=== PATIENT | male | born 1940 | race Caucasian/White ===

== ENCOUNTER 2018-12-31 19:41 | Inpatient (IN) | payer OTHER ==
[~2018-12-31] VITALS: Ht 167.6 cm; Wt 100.2 kg
--- NOTE | 2018-12-31 19:41 | NUR ---
PT CLARISA ALS. TAKEN TO BED 11
[2018-12-31 19:46] VITALS: BP 146/88
--- NOTE | 2018-12-31 20:24 | NUR ---
Dr. Castelan evaluating patient at bedside.
--- NOTE | 2018-12-31 20:40 | NUR ---
RT AND LAB AT BEDSIDE.
[2018-12-31 20:58] LABS: HEMATOCRIT 39.3 % (36-52); HEMOGLOBIN 12.9 g/dL (12.0-18.0); MEAN CORPUSCULAR HEMOGLOBIN 29 pg (27-31); MEAN CORPUSCULAR HGB CONC 33 g/dL (33-37); MEAN CORPUSCULAR VOLUME 88.1 fL (80-94); PLATELET COUNT (AUTO) 184 K/uL (140-450); RED BLOOD CELL COUNT(AUTO) 4.46 MIL/uL (4.20-6.10); RED CELL DISTRIBUTION WIDTH 14.7 % (11.6-13.7); WHITE BLOOD COUNT (AUTO) 14.5 K/uL (4.8-10.8)
[2018-12-31 21:09] LABS: APPEARANCE,URINE CLEAR (CLEAR); BILIRUBIN,URINE NEGATIVE (NEGATIVE); BLOOD, URINE NEGATIVE (NEGATIVE); COLOR,URINE YELLOW (YELLOW); LEUKOCYTE ESTERASE ,URINE NEGATIVE (NEGATIVE); NITRITE, URINE NEGATIVE (NEGATIVE); PH,URINE 6.5 (5.0-9.0); UGLUCOSE 3+ (NEGATIVE)
[2018-12-31 21:21] LABS: ALBUMIN 3.4 g/dL (3.4-5.0); ASPARTATE AMINOTRANSFERASE 18 U/L (15-37); CARBON DIOXIDE 28.9 mmol/L (21-32); CHLORIDE 95 mmol/L (98-107); CREATININE 1.6 mg/dL (0.7-1.3); POTASSIUM 3.9 mmol/L (3.5-5.1); SODIUM SERUM 131 mmol/L (136-145); TOTAL BILIRUBIN 0.9 mg/dL (0.0-1.0); UREA NITROGEN, BLOOD 33 mg/dL (7-18)
[2018-12-31 21:27] LABS: EOSINOPHILS % (MANUAL) 1 % (0-4); LYMPHOCYTES % (MANUAL) 25 % (20-46); MONOCYTES % (MANUAL) 6 % (5-12)
[2018-12-31 21:33] LABS: GLUCOSE 517 mg/dL (74-106)
[2018-12-31] MEDS ORDERED: NACL 0.9% 2,500 ML IV ONE (21:40)
--- NOTE | 2018-12-31 21:45 | NUR ---
FLU SWAB WAS DONE, SENT TO LAB
[2018-12-31] MEDS ORDERED: INSULIN REGULAR, HUMAN 100 UNIT/ML VIAL IVP ONE (22:05)
[2018-12-31] MEDS ORDERED: AZITHROMYCIN 500 MG in DEXTROSE 5% 250 ML IV ONE (22:35)
[2018-12-31] MEDS ORDERED: cefTRIAXone 1,000 MG VIAL ONE (22:52)
--- NOTE | 2018-12-31 23:29 | NUR ---
Blood sugar checked, result 302. notified.
[2018-12-31] MEDS ORDERED: AZITHROMYCIN 500 MG INJ VIAL IV ONE (23:32)
[2019-01-01] MEDS ORDERED: AMLO5TAB PO (00:27)
[2019-01-01] MEDS ORDERED: FINA5TAB1 PO (00:27)
[2019-01-01] MEDS ORDERED: CARV25TA2 PO (00:27)
[2019-01-01] MEDS ORDERED: AMAN100S37 PO (00:27)
[2019-01-01] MEDS ORDERED: QUET25TA PO (00:27)
[2019-01-01] MEDS ORDERED: HYDR-3293 PO (00:27)
[2019-01-01] MEDS ORDERED: TAMS0.4C96 PO (00:27)
[2019-01-01] MEDS ORDERED: HYDR-5122 PO (00:27)
[2019-01-01] MEDS ORDERED: DULO30EC PO (00:27)
[2019-01-01] MEDS ORDERED: RASA1TAB3 PO (00:27)
[2019-01-01] MEDS ORDERED: OMEP20TC PO (00:27)
[2019-01-01] MEDS ORDERED: ALBU117P IH (00:27)
[2019-01-01] MEDS ORDERED: FLUT1DSK2 IH (00:27)
[2019-01-01] MEDS ORDERED: FLONAS NS (00:27)
[2019-01-01] MEDS ORDERED: ATOR40TA PO (00:27)
[2019-01-01] MEDS ORDERED: NITR0.4T2 SL (00:27)
[2019-01-01] MEDS ORDERED: FISH10005 PO (00:27)
--- NOTE | 2019-01-01 00:40 | NUR ---
Pt report given to TARA Tillman. Transfer of care at this time.
--- NOTE | 2019-01-01 00:40 | NUR ---
Patient will be admitted to care of MD Arlette. Admited to [facility]. Will go to room 111A. Belongings list completed. Report to TARA Tillman.
--- NOTE | 2019-01-01 00:45 | NUR ---
ADMITTED THIS 78 YEAR OLD MALE FROM ER PER MARY BETH WITH CC OF SOB X 2WEEKS, AMBULATED TO BED WITH STEADY GAIT, ASSESSMENT DONE, AAOX4, VITAL SIGNS TAKEN, BP SLIGHTLY ELEVATED, DENIES CHEST PAIN, NO SOB NOTED, SAT-95% ON OXYGEN 2L VIA NASAL CANNULA, WITH DRY COUGH, ORIENTED TO ROOM AND CALL LIGHT, SLIGHT [place] TRIBE ON BOTH EARS, PLAN OF CARE DISCUSS, SAFETY MEASURES IN PLACE, CALL LIGHT WITHIN REACH.
[2019-01-01 01:00] VITALS: BP 159/89
[2019-01-01] MEDS ORDERED: ONDANSETRON 4 MG/2 ML VIAL IVP PRN (01:40)
[2019-01-01] MEDS ORDERED: ACETAMINOPHEN 325 MG TAB PO PRN (01:40)
[2019-01-01] MEDS ORDERED: DEXTROSE 50% 50 ML SYR IVP PRN (01:40)
--- NOTE | 2019-01-01 01:40 | NUR ---
PT PROVIDED WITH ICE WATER, TOLERATED, IVF INFUSING WELL, SIDE RAILS UP AND BED ALARM ON, ENCOURAGE TO USE CALL LIGHT FOR ASSISTANCE, MONITORED CLOSELY.
[2019-01-01] MEDS ORDERED: ALBUTEROL SULFATE/IPRATROPIU 3 ML SOL IH PRN (02:35)
--- NOTE | 2019-01-01 03:20 | NUR ---
PT AMBULATED TO BR WITH STANDBY ASSIST, VOIDED FREELY, PT BACK TO BED, NO SOB NOTED, MONITORED CLOSELY.
[2019-01-01 04:00] VITALS: BP 118/61
[2019-01-01] MEDS: INSULIN LISPRO SLIDING SCALE 100 UNITS/ML VIAL SUBQ PRN ×2 (05:54→11:46)
--- NOTE | 2019-01-01 06:07 | NUR ---
BLOOD SUGAR CHECKED WITH 271 RESULT, COVERAGE GIVEN, PT WATCHING TV, NO RESP DISTRESS NOTED, IVF INFUSING WELL, MONITORED CLOSELY.
[2019-01-01] MEDS: BLOOD GLUCOSE MONITORING 1 DEV DEV FS SCH ×2 (06:33→11:43)
--- NOTE | 2019-01-01 07:22 | NUR ---
BEDSIDE REPORT RECEIVED FROM NIGHT NURSE. PT AWAKE A/O ABLE TO COMMUNICATE NEEDS, DENIES PAIN OR SOB. NO S/S OF ACUTE DISTRESS NOTED AT THIS TIME, CALL LIGHT AND PERSONAL ITEMS WITHIN REACH, FALL PRECAUTIONS AND SAFETY MEASURES IN PLACE. WILL CONTINUE TO MONITOR.
--- NOTE | 2019-01-01 07:22 | NUR ---
PT AWAKE, NO SIGNS OF DISTRESS, BEDSIDE REPORT GIVEN TO TARA MEADOWS FOR CONTINUITY OF CARE.
[2019-01-01] MEDS ORDERED: BUDESONIDE 0.5 MG/2 ML NEBU INH SCH (07:30)
[2019-01-01 08:00] VITALS: BP 154/80
--- NOTE | 2019-01-01 08:35 | NUR ---
PATIENT HAS BEEN SCREENED AND CATEGORIZED HIGH NUTRITION RISK. PATIENT WILL BE SEEN WITHIN 1-2 DAYS OF ADMISSION. 01/01/19-01/02/[address]
--- NOTE | 2019-01-01 10:30 | NUR ---
PT REMAINS AWAKE A/O ABLE TO COMMUNICATE NEEDS, DENIES PAIN OR SOB AT THIS TIME. NO S/S OF ACUTE DISTRESS NOTED, CALL LIGHT AND PERSONAL ITEMS WITHIN REACH, FALL PRECAUTIONS AND SAFETY MEASURES IN PLACE. WILL CONTINUE TO MONITOR.
[2019-01-01] MEDS ORDERED: LEVO750T2 PO (10:53)
[2019-01-01 11:43] LABS: ANION GAP 7.8 (8-16); CHLORIDE 101 mmol/L (98-107); CREATININE 1.1 mg/dL (0.7-1.3); GLUCOSE 300 mg/dL (74-106); POTASSIUM 3.8 mmol/L (3.5-5.1); SODIUM SERUM 137 mmol/L (136-145); UREA NITROGEN, BLOOD 26 mg/dL (7-18)
[2019-01-01 12:00] VITALS: BP 133/72
[2019-01-01 12:10] LABS: BASOPHILS % (AUTO) 0.2 % (0.0-2.0); EOSINOPHILS # (AUTO) 0.2 K/uL (0-0.4); EOSINOPHILS % (AUTO) 1.7 % (0.0-4.0); LYMPHOCYTES # (AUTO) 4.7 K/uL (2.0-11.5); LYMPHOCYTES % (AUTO) 35.8 % (20.5-51.1); MEAN CORPUSCULAR HEMOGLOBIN 29 pg (27-31); MEAN CORPUSCULAR HGB CONC 33 g/dL (33-37); MEAN CORPUSCULAR VOLUME 87.1 fL (80-94); MONOCYTES % (AUTO) 7.7 % (1.7-9.3); NEUTROPHILS # (AUTO) 7.2 K/uL (1.8-7.7); NEUTROPHILS % (AUTO) 54.6 % (42.2-75.2); PLATELET COUNT (AUTO) 180 K/uL (140-450); RED BLOOD CELL COUNT(AUTO) 4.48 MIL/uL (4.20-6.10); WHITE BLOOD COUNT (AUTO) 13.3 K/uL (4.8-10.8)
--- NOTE | 2019-01-01 13:30 | NUR ---
PT REMAINS AWAKE A/O ABLE TO COMMUNICATE NEEDS, AMBULATING IN ROOM WITHOUT SOB. DENIES PAIN, NO S/S OF ACUTE DISTRESS NOTED, CALL LIGHT AND PERSONAL ITEMS WITHIN REACH, FALL PRECAUTIONS AND SAFETY MEASURES IN PLACE. WILL CONTINUE TO MONITOR.
[2019-01-01 13:34] VITALS: BP 133/72
--- NOTE | 2019-01-01 15:06 | NUR ---
01/01/19 RD INITIAL ASSESSMENT COMPLETED PLEASE REFER TO NUTRITION ASSESSMENT UNDER CARE ACTIVITY FOR ESTIMATED NUTRITIONAL NEEDS. 1. CONTINUE [facility] DIET TOLERATED 2. DIABETES EDUCATION WAS PROVIDED TO PATIENT 3. RD TO FOLLOW-UP 5-7 DAYS, LOW RISK JENNIFER ARIAS RD
--- NOTE | 2019-01-01 15:20 | NUR ---
Pt discharged home w and daughter via personal transport. Pt a/o able to communicate needs, denies sob or pain, o2 sat 96% on room air. Pt discharged w all belongings, peripheral IV access catheter removed, tolerated well, catheter intact. No s/s of acute distress noted at this time. Pt current w pneumonia and flu vaccines. Provided dc instructions and prescription to Pt and family, verbalized understanding.
[2019-01-01] MEDS ORDERED: AZITHROMYCIN 500 MG in DEXTROSE 5% 250 ML IV SCH (23:00)
== END 2019-01-01 15:20 | disposition home or self-care (01) | DRG 682 ==
LOC: MED 19:41 → MTU 23:53
PROVIDERS: ADMIT Internal Medicine Pulmonary Disease; ATTEND Internal Medicine Pulmonary Disease
DX: N17.0 Acute kidney failure with tubular necrosis (principal); J18.9 Pneumonia, unspecified organism; E87.1 Hypo-osmolality and hyponatremia; I10 Essential (primary) hypertension; G47.30 Sleep apnea, unspecified; E66.9 Obesity, unspecified; G20 Parkinson's disease; E11.65 Type 2 diabetes mellitus with hyperglycemia; Z68.35 Body mass index [BMI] 35.0-35.9, adult
CPT/HCPCS: 36415; 36600; 71045; 80048; 80053; 81003; 82803; 82948; 83605; 83880; 84484; 85025; 85610; 87040; 87081; 87086; 87804; 94640; 96365; 96375; 99285; J0456; J0696; J1815; J7060; J7620; J7626; Q0092